=== PATIENT | male | born 1970 | race Caucasian/White ===

== ENCOUNTER 2018-10-27 22:44 | Emergency (ER) | payer SELFPAY ==
[2018-10-27 23:08] VITALS: Ht 177.8 cm
[2018-10-28] MEDS ORDERED: AUGMENTIN 875-11 TAB PO (01:38)
[2018-10-28] MEDS ORDERED: MEDROL DOSE PACK4 MG PO (01:38)
[2018-10-28 02:15] VITALS: BP 121/82
== END 2018-10-28 02:10 | disposition home or self-care (01) ==
LOC: D.ER 22:44
DX: J01.90 Acute sinusitis, unspecified (principal); R05 Cough; R09.89 Other specified symptoms and signs involving the circulatory and respiratory systems